=== PATIENT | male | born 1960 | race Caucasian/White ===

== ENCOUNTER 2020-03-20 10:19 | Emergency (ER) | payer BC, OTHER ==
[2020-03-20] MEDS ORDERED: LIDOCAINE 1% W/EPI 1:100,000 MDV 50 ML VIAL ONE (11:28)
--- NOTE | 2020-03-20 11:35 | RAD REPORT ---
EXAM DESCRIPTION: CT - Head Brain Wo Cont - 03/20/2020 11:22 am CLINICAL HISTORY: TRAUMAfall, head trauma COMPARISON: No comparisons TECHNIQUE: Axial 5 mm thick images of the head were obtained without IV contrast. All CT scans are performed using dose optimization technique as appropriate and may include automated exposure control or mA/KV adjustment according to patient size. FINDINGS: No intracranial hemorrhage, mass, edema or shift of mid-line structures. No acute infarcti on changes seen. No abnormal extra-axial fluid collections. Ventricles are normal. Mastoid air cells and visualized portions of the paranasal sinuses are clear. No acute bony findings. Laceration lateral right frontal region. No foreign body. IMPRESSION: Negative non-contrast CT head examination.
--- NOTE | 2020-03-20 12:24 | EDPHYS ---
Physician Documentation [facility] Name: Tony Alicia Age: 59 yrs Sex: Male : 1960 Arrival Date: 03/20/2020 Time: 10:21 Bed 19 Private MD: ED Physician Ap Larid HPI: 03/20 12:21 This 59 yrs old Male presents to ER via Ambulatory with complaints of jr8 Laceration To Head. 12:21 The patient has a laceration related to: falling occurred at home. The laceration(s) jr8 is(are) located on the scalp. Onset: The symptoms/episode began/occurred acutely, last night. Associated signs and symptoms: The patient has no apparent associated signs or symptoms. The patient has not experienced similar symptoms in the past. The patient has not recently seen a physician. Patient stated that he was intoxicated last night. Fell and hit head. Does not remember all of event. Came in to ED after saw large laceration to side of head . Historical: - Allergies: 10:50 No Known Allergies; iw - Home Meds: 10:50 Lisinopril Oral once daily [Active]; Metoprolol Tartrate Oral [Active]; atorvastatin iw oral oral [Active]; - PMHx: 10:50 Hyperlipidemia; Hypertension; iw - PSHx: 10:50 right shoulder; iw - Immunization history:: Adult Immunizations not up to date, Last tetanus immunization: unknown. - Social history:: Smoking status: Patient reports the use of cigarette tobacco products, smokes one pack cigarettes per day. ROS: 12:21 Eyes: Negative for injury, pain, redness, and discharge, ENT: Negative for injury, jr8 pain, and discharge, Neck: Negative for injury, pain, and swelling, Cardiovascular: Negative for chest pain, palpitations, and edema, Respiratory: Negative for shortness of breath, cough, wheezing, and pleuritic chest pain, Abdomen/GI: Negative for abdominal pain, nausea, vomiting, diarrhea, and constipation, Back: Negative for injury and pain, MS/Extremity: Negative for injury and deformity, Neuro: Negative for headache, weakness, numbness, tingling, and seizure. 12:21 Skin: Positive for laceration(s), of the scalp. Exam: 12:21 Eyes: Pupils equal round and reactive to light, extra-ocular motions intact. Lids and jr8 lashes normal. Conjunctiva and sclera are non-icteric and not injected. Cornea within normal limits. Periorbital areas with no swelling, redness, or edema. ENT: Nares patent. No nasal discharge, no septal abnormalities noted. Tympanic membranes are normal and external auditory canals are clear. Oropharynx with no redness, swelling, or masses, exudates, or evidence of obstruction, uvula midline. Mucous membranes moist. Neck: Trachea midline, no thyromegaly or masses palpated, and no cervical lymphadenopathy. Supple, full range of motion without nuchal rigidity, or vertebral point tenderness. No Meningismus. Cardiovascular: Regular rate and rhythm with a normal S1 and S2. No gallops, murmurs, or rubs. Normal PMI, no JVD. No pulse deficits. Respiratory: Lungs have equal breath sounds bilaterally, clear to auscultation and percussion. No rales, rhonchi or wheezes noted. No increased work of breathing, no retractions or nasal flaring. Abdomen/GI: Soft, non-tender, with normal bowel sounds. No distension or tympany. No guarding or rebound. No evidence of tenderness throughout. Back: No spinal tenderness. No costovertebral tenderness. Full range of motion. MS/ Extremity: Pulses equal, no cyanosis. Neurovascular intact. Full, normal range of motion. Neuro: Awake and alert, GCS 15, oriented to person, place, time, and situation. Cranial nerves II-XII grossly intact. Motor strength 5/5 in all extremities. Sensory grossly intact. Cerebellar exam normal. Normal gait. 12:21 Head/face: Noted is a laceration(s), that is deep, that is linear, 7.5 cm(s), of the right parietal region . Vital Signs: 10:50 BP 210 / 89; Pulse 73; Resp 16; Temp 98.4; Pulse Ox 100% on R/A; iw 11:45 BP 167 / 84; Pulse 67; Resp 18; Pulse Ox 100% ; bp 12:50 BP 172 / 70; Pulse 67; Resp 17; Temp 98.5; Pulse Ox 100% ; bp Laceration: 12:21 Wound Repair of 7.5cm ( 3.0in ) subcutaneous laceration to scalp. Linear shaped.. jr8 Distal neuro/vascular/tendon intact. Anesthesia: Local anesthetic administered with 5 mls of 1% lidocaine w/ Epi. Wound prep: Extensive cleansing with betadine, Wound irrigation with saline, Wound explored extensively, Copious irrigation. Skin closed with 7 sophia Sophia using staple gun. Patient tolerated well. MDM: 11:06 Patient medically screened. jr8 12:21 Data reviewed: vital signs, nurses notes, radiologic studies, CT scan, and as a result, jr8 I will discharge patient. Data interpreted: Pulse oximetry: on room air is 100 %. Interpretation: normal. Counseling: I had a detailed discussion with the patient and/or guardian regarding: the historical points, exam findings, and any diagnostic results supporting the discharge/admit diagnosis, radiology results, the need for outpatient follow up, a family practitioner, to return to the emergency department if symptoms worsen or persist or if there are any questions or concerns that arise at home. 03/20 11:13 Order name: CT Head Brain wo Cont; Complete Time: 11:49 jr8 03/20 11:13 Order name: Dressing - Wound; Complete Time: 11:17 jr8 03/20 11:13 Order name: Gloves, Sterile; Complete Time: 11:17 jr8 Administered Medications: 11:17 Drug: Lidocaine-Epinephrine -1%: (1:100,000) 1 vials {Note: AT B/S.} Volume: 20 ml; bp Route: Infiltration; 12:35 Drug: Tetanus-Diphtheria Toxoid Adult 0.5 ml {Golf Ball Marker: [employer]. Exp: bp 08/15/2022. Lot #: [id number]. } Route: IM; Site: right deltoid; 12:43 Follow up: Response: No adverse reaction bp Disposition: 13:38 Co-signature as Attending Physician, Ap Laird MD. rn Disposition: 03/20/20 12:24 Discharged to Home. Impression: Laceration without foreign body of scalp. - Condition is Stable. - Discharge Instructions: Laceration Care, Adult. - Prescriptions for Keflex 500 mg Oral Capsule - take 1 capsule by ORAL route every 8 hours for 7 days; 21 capsule. - Medication Reconciliation Form, Thank You Letter, Antibiotic Education, Prescription Opioid Use form. - Follow up: Private Physician; When: 1 week; Reason: Wound Recheck, Recheck today's complaints, Continuance of care, Staple/Suture removal, Re-evaluation by your physician. - Problem is new. - Symptoms have improved. Signatures: Dispatcher [employer] EDSmita Retana RN RN Ap Barajas MD MD rn Roszak, Josh, PA PA jr8 Sunil Wyman, RN RN bp Corrections: (The following items were deleted from the chart) 12:54 12:24 03/20/2020 12:24 Discharged to Home. Impression: Laceration without foreign body bp of scalp. Condition is Stable. Forms are Medication Reconciliation Form, Thank You Letter, Antibiotic Education, Prescription Opioid Use. Follow up: Private Physician; When: 1 week; Reason: Wound Recheck, Recheck today's complaints, Continuance of care, Staple/Suture removal, Re-evaluation by your physician. Problem is new. Symptoms have improved. jr8
--- NOTE | 2020-03-20 12:24 | ER ---
Nurse's Notes [facility] Name: Tony Alicia Age: 59 yrs Sex: Male : 1960 Arrival Date: 03/20/2020 Time: 10:21 Bed 19 Private MD: Diagnosis: Laceration without foreign body of scalp Presentation: 03/20 10:43 Chief complaint: Patient states: fell last night walking up the porch, does not iw remember how he fell, was drinking, has large laceration to right side of head, has some right hip pain but no other injuries, incident occurred around 9 pm. Coronavirus screen: At this time, the client does not indicate any symptoms associated with coronavirus-19. Ebola Screen: Patient negative for fever greater than or equal to 101.5 degrees Fahrenheit, and additional compatible Ebola Virus Disease symptoms Patient denies exposure to infectious person. Patient denies travel to an Ebola-affected area in the 21 days before illness onset. No symptoms or risks identified at this time. Initial Sepsis Screen: Does the patient meet any 2 criteria? No. Patient's initial sepsis screen is negative. Does the patient have a suspected source of infection? No. Patient's initial sepsis screen is negative. Risk Assessment: Do you want to hurt yourself or someone else? Patient reports no desire to harm self or others. Onset of symptoms was March 19, 2020. 10:43 Method Of Arrival: Ambulatory iw 10:43 Acuity: DAVID 4 iw Triage Assessment: 10:50 General: Appears in no apparent distress. comfortable, Behavior is cooperative, bp appropriate for age, anxious. Pain: Complains of pain in scalp. EENT: No deficits noted. Neuro: No deficits noted. Cardiovascular: No deficits noted. Respiratory: No deficits noted. GI: No signs and/or symptoms were reported involving the gastrointestinal system. : No signs and/or symptoms were reported regarding the genitourinary system. Derm: No deficits noted. Musculoskeletal: No deficits noted. Injury Description: Laceration sustained to scalp is 7.6 to 20 cm long, not bleeding. Historical: - Allergies: 10:50 No Known Allergies; iw - Home Meds: 10:50 Lisinopril Oral once daily [Active]; Metoprolol Tartrate Oral [Active]; atorvastatin iw oral oral [Active]; - PMHx: 10:50 Hyperlipidemia; Hypertension; iw - PSHx: 10:50 right shoulder; iw - Immunization history:: Adult Immunizations not up to date, Last tetanus immunization: unknown. - Social history:: Smoking status: Patient reports the use of cigarette tobacco products, smokes one pack cigarettes per day. Screenin:19 Abuse screen: Denies threats or abuse. Denies injuries from another. Nutritional bp screening: No deficits noted. Tuberculosis screening: No symptoms or risk factors identified. Fall Risk None identified. Assessment: 10:50 General: SEE TRIAGE NOTE. bp 11:18 Reassessment: PT TO CT. bp 12:30 Pain: Complains of pain in scalp. :. : No signs and/or symptoms were reported bp regarding the genitourinary system. Injury Description: Laceration sustained to scalp is bleeding no active bleeding noted. 12:50 Reassessment: PT D/C HOME AMBULATORY, DX WITH LACERATION OF SCALP WITHOUT FOREIGN BODY. bp Vital Signs: 10:50 BP 210 / 89; Pulse 73; Resp 16; Temp 98.4; Pulse Ox 100% on R/A; iw 11:45 BP 167 / 84; Pulse 67; Resp 18; Pulse Ox 100% ; bp 12:50 BP 172 / 70; Pulse 67; Resp 17; Temp 98.5; Pulse Ox 100% ; bp ED Course: 10:21 Patient arrived in ED. ag5 10:37 Sunil Wyman, RN is Primary Nurse. bp 10:48 Triage completed. iw 10:50 Arm band placed on. iw 11:06 Geoff Black PA is PHCP. jr8 11:06 Ap Laird MD is Attending Physician. jr8 11:19 Patient has correct armband on for positive identification. Bed in low position. Call bp light in reach. Side rails up X2. Adult w/ patient. 11:21 CT Head Brain wo Cont In Process Unspecified. EDMS 12:51 Assist provider with laceration repair on scalp. Patient did not have IV access during bp this emergency room visit. Administered Medications: 11:17 Drug: Lidocaine-Epinephrine -1%: (1:100,000) 1 vials {Note: AT B/S.} Volume: 20 ml; bp Route: Infiltration; 12:35 Drug: Tetanus-Diphtheria Toxoid Adult 0.5 ml {[employer] Curator: [employer]. Exp: bp 08/15/2022. Lot #: [id number]. } Route: IM; Site: right deltoid; 12:43 Follow up: Response: No adverse reaction bp Outcome: 12:24 Discharge ordered by MD. moser 12:53 Discharged to home ambulatory. bp 12:53 Condition: stable 12:53 Discharge instructions given to patient, Instructed on discharge instructions, follow up and referral plans. medication usage, wound care, Demonstrated understanding of instructions, follow-up care, medications, wound care, Prescriptions given X 1. 12:54 Patient left the ED. bp Signatures: Dispatcher [employer] EDMS Smita Rolle, RN RN Geoff Christie PA PA jr8 Sunil Wyman, SARA RN Latonya Reece 5
[2020-03-20] MEDS ORDERED: TETANUS & DIPHTHERIA TOX,ADULT 0.5 ML VIAL ONE (12:43)
[2020-03-20 13:00] VITALS: O2SAT 100
[2020-03-20 13:03] VITALS: BP 172/70; TEMP 98.5
== END 2020-03-20 12:54 | disposition home or self-care (01) ==
LOC: ER 10:19
PROC: 0JQ00ZZ Repair Scalp Subcutaneous Tissue and Fascia, Open Approach (ICD-10-PCS; principal; 2020-03-20)
DX: S01.01XA Laceration without foreign body of scalp, initial encounter (principal); F17.210 Nicotine dependence, cigarettes, uncomplicated; W19.XXXA Unspecified fall, initial encounter; Y93.89 Activity, other specified; Y92.009 Unspecified place in unspecified non-institutional (private) residence as the place of occurrence of the external cause; Z23 Encounter for immunization; I10 Essential (primary) hypertension; E78.5 Hyperlipidemia, unspecified
CPT/HCPCS: 70450; 90471; 90714; 99284

== ENCOUNTER 2020-03-28 09:14 | Emergency (ER) | payer BC ==
--- NOTE | 2020-03-28 09:34 | ER ---
Nurse's Notes [facility] Name: Tony Alicia Age: 59 yrs Sex: Male : 1960 Arrival Date: 03/28/2020 Time: 09:15 Bed Waiting Private MD: Diagnosis: Encounter for removal of sutures-asad Presentation: 03/28 09:30 Chief complaint: Patient states: I need my asad taken out. Coronavirus screen: ss Client denies travel out of the [place] in the last 14 days. At this time, the client does not indicate any symptoms associated with coronavirus-19. Ebola Screen: Patient negative for fever greater than or equal to 101.5 degrees Fahrenheit, and additional compatible Ebola Virus Disease symptoms Patient denies exposure to infectious person. Patient denies travel to an Ebola-affected area in the 21 days before illness onset. No symptoms or risks identified at this time. 09:30 Method Of Arrival: Ambulatory ss 09:30 Initial Sepsis Screen: Does the patient meet any 2 criteria? No. Patient's initial ss sepsis screen is negative. Does the patient have a suspected source of infection? No. Patient's initial sepsis screen is negative. Risk Assessment: Do you want to hurt yourself or someone else? Patient reports no desire to harm self or others. Onset of symptoms was March 2020. 09:30 Acuity: DAVID 5 Triage Assessment: 09:31 General: Appears in no apparent distress. comfortable, Behavior is calm, cooperative. ss Pain: Denies pain. Historical: - Allergies: 09:32 No Known Allergies; ss - PMHx: 09:32 Hyperlipidemia; Hypertension; ss - PSHx: 09:32 right shoulder; ss - Immunization history:: Adult Immunizations up to date. - Social history:: Smoking status: Patient denies any tobacco usage or history of. Screenin:32 Abuse screen: Denies threats or abuse. Denies injuries from another. Nutritional ss screening: No deficits noted. Tuberculosis screening: Never had TB. Fall Risk None identified. Assessment: 09:32 General: Appears in no apparent distress. comfortable, Behavior is calm, cooperative, ss encounter for suture removal. . Pain: Denies pain. Neuro: Level of Consciousness is awake, alert, obeys commands, Oriented to person, place, time, situation. Respiratory: Respiratory effort is even, unlabored, Respiratory pattern is regular, symmetrical. Derm: Skin is intact, is healthy with good turgor, Skin is pink, warm \T\ dry. normal. Vital Signs: 09:30 BP 189 / 79; Pulse 60; Resp 18; Temp 98.6; Pulse Ox 99% ; Weight 79.38 kg; Pain 0/10; ss ED Course: 09:15 Patient arrived in ED. as 09:19 [facility]C [facility] kb 09:19 Breezy Dozier MD is Attending Physician. kb 09:31 Arm band placed on right wrist. ss 09:32 Patient has correct armband on for positive identification. ss 09:32 No provider procedures requiring assistance completed. Patient did not have IV access ss during this emergency room visit. Removal of Patient tolerated well. 09:34 Triage completed. ss Administered Medications: No medications were administered Outcome: 09:32 Discharged to home ambulatory. ss 09:32 Condition: good 09:32 Discharge instructions given to patient, Instructed on discharge instructions, follow up and referral plans. Demonstrated understanding of instructions, follow-up care. 09:34 Discharge ordered by . kb 09:35 Patient left the ED. ss Signatures: Kate Andino FNP-C FNP-Ckb Martinez, Amelia as Smirch, Shelby, RN RN ss
--- NOTE | 2020-03-28 09:34 | EDPHYS ---
Physician Documentation [facility] Name: Tony Alicia Age: 59 yrs Sex: Male : 1960 Arrival Date: 03/28/2020 Time: 09:15 Bed Waiting Private MD: ED Physician Breezy Dozier HPI: 03/28 09:33 This 59 yrs old Male presents to ER via Ambulatory with complaints of Staple kb Removal. 09:33 The patient has asad on the right frontal area. Previous treatment: The patient was kb initially treated 8 day(s) ago, the care was rendered at [facility], Treatment type: The patient's original treatment included asad. Sutures/asad progress: The patient has no c/o's. The wound is well-healing with no redness, swelling, discharge, or dehiscence reported. The patient has not experienced similar symptoms in the past. The patient has been recently seen at the [facility] Emergency Department. Historical: - Allergies: 09:32 No Known Allergies; ss - PMHx: 09:32 Hyperlipidemia; Hypertension; ss - PSHx: 09:32 right shoulder; ss - Immunization history:: Adult Immunizations up to date. - Social history:: Smoking status: Patient denies any tobacco usage or history of. ROS: 09:32 Constitutional: Negative for fever, chills, and weight loss, Cardiovascular: Negative kb for chest pain, palpitations, and edema, Respiratory: Negative for shortness of breath, cough, wheezing, and pleuritic chest pain, Abdomen/GI: Negative for abdominal pain, nausea, vomiting, diarrhea, and constipation, MS/Extremity: Negative for injury and deformity, Neuro: Negative for headache, weakness, numbness, tingling, and seizure. 09:32 Skin: Positive for of the right frontal area, asad in place. Exam: 09:32 Constitutional: This is a well developed, well nourished patient who is awake, alert, kb and in no acute distress. Head/Face: Normocephalic, atraumatic. Chest/axilla: Normal chest wall appearance and motion. Nontender with no deformity. No lesions are appreciated. Cardiovascular: Regular rate and rhythm with a normal S1 and S2. No gallops, murmurs, or rubs. Normal PMI, no JVD. No pulse deficits. Respiratory: Lungs have equal breath sounds bilaterally, clear to auscultation and percussion. No rales, rhonchi or wheezes noted. No increased work of breathing, no retractions or nasal flaring. Abdomen/GI: Soft, non-tender, with normal bowel sounds. No distension or tympany. No guarding or rebound. No evidence of tenderness throughout. MS/ Extremity: Pulses equal, no cyanosis. Neurovascular intact. Full, normal range of motion. Neuro: Awake and alert, GCS 15, oriented to person, place, time, and situation. Cranial nerves II-XII grossly intact. Motor strength 5/5 in all extremities. Sensory grossly intact. Cerebellar exam normal. Normal gait. 09:32 Skin: Wound recheck: Staple laceration closure: the wound is healing well, the edges are well approximated, no evidence of dehiscence, no drainage, no erythema, no swelling. Vital Signs: 09:30 BP 189 / 79; Pulse 60; Resp 18; Temp 98.6; Pulse Ox 99% ; Weight 79.38 kg; Pain 0/10; ss Procedures: 09:33 Suture/Staple removal: Removed 7 asad, from right frontal area, site appears well kb healed, Patient tolerated well. MDM: 09:24 Patient medically screened. kb 09:33 Data reviewed: vital signs, nurses notes. Data interpreted: Pulse oximetry: on room air kb is 99 %. Interpretation: normal. Counseling: I had a detailed discussion with the patient and/or guardian regarding: the historical points, exam findings, and any diagnostic results supporting the discharge/admit diagnosis, the need for outpatient follow up, a family practitioner, to return to the emergency department if symptoms worsen or persist or if there are any questions or concerns that arise at home. Administered Medications: No medications were administered Disposition: 10:21 Co-signature as Attending Physician, Breezy Dozier MD I agree with the assessment and kdr plan of care. Disposition: 03/28/20 09:34 Discharged to Home. Impression: Encounter for removal of sutures - asad. - Condition is Stable. - Discharge Instructions: Suture Removal, Care After. - Medication Reconciliation Form, Thank You Letter, Antibiotic Education, Prescription Opioid Use form. - Follow up: Emergency Department; When: As needed; Reason: Worsening of condition. Follow up: Private Physician; When: 2 - 3 days; Reason: Recheck today's complaints, Continuance of care, Re-evaluation by your physician. Signatures: Kate Andino FNP-C FNP-Breezy Call MD MD [facility] Aisha Ferrer RN RN ss Corrections: (The following items were deleted from the chart) 09:35 09:34 03/28/2020 09:34 Discharged to Home. Impression: Encounter for removal of sutures ss - asad. Condition is Stable. Forms are Medication Reconciliation Form, Thank You Letter, Antibiotic Education, Prescription Opioid Use. Follow up: Emergency Department; When: As needed; Reason: Worsening of condition. Follow up: Private Physician; When: 2 - 3 days; Reason: Recheck today's complaints, Continuance of care, Re-evaluation by your physician. kb
[2020-03-28 10:06] VITALS: BP 189/79; TEMP 98.6; O2SAT 99
== END 2020-03-28 09:35 | disposition home or self-care (01) ==
LOC: ER 09:14
DX: Z48.02 Encounter for removal of sutures (principal)
CPT/HCPCS: 99281

== ENCOUNTER 2023-12-01 09:32 | Emergency (ER) | payer OTHER ==
[2023-12-01] MEDS ORDERED: AZITHROMYCIN 250 MG TAB ONE (10:10)
[2023-12-01 10:35] LABS: SARS-CoV-2 Antigen CONTROL BLUE LINE VIS/BG OK; SARS-CoV-2 Antigen Rapid Res Negative (Negative)
[2023-12-01] MEDS ORDERED: CEFTRIAXONE 1000 MG/VIAL ONE (10:36)
[2023-12-01] MEDS ORDERED: IPRATROPIUM BROM 0.5MG/2.5ML ONE (10:36)
[2023-12-01] MEDS ORDERED: METHYLPREDNISOLONE 125 MG INJ ONE (10:37)
[2023-12-01] MEDS ORDERED: predniSONE 20 MG TAB ONE (10:37)
[2023-12-01] MEDS ORDERED: LEVALBUTEROL 1.25 MG/3 ML NEB ONE ×2 (10:37→12:44)
[2023-12-01] MEDS ORDERED: NA CHLORIDE 0.9% 100 ML ONE (10:38)
[2023-12-01] MEDS ORDERED: Magnesium Sulfate 2gm IVPB 2 G/50 ML BAG IV ONE (10:38)
--- NOTE | 2023-12-01 11:32 | RAD REPORT ---
EXAM DESCRIPTION: RAD - Chest Pa And Lat (2 Views) - 12/01/2023 10:50 am CLINICAL HISTORY: COPD;Cough COMPARISON: CHEST PA AND LAT 2 VIEW dated 02/07/2007 TECHNIQUE: PA and lateral views of the chest were obtained. FINDINGS: Left perihilar streaky opacification, new/ progressive since the prior exam. . Heart size is normal and central vasculature is within normal limits. No pleural effusion or pneumothorax seen. No acute bony finding noted. IMPRESSION: New or progressive left perihilar streaky opacification, could reflect reactive airway c hanges or early pneumonia.
[2023-12-01 11:41] LABS: Absolute Lymphocytes (CBC) 0.9 K/uL (0.7-4.9); Absolute Neutrophil 13.6 K/uL (1.8-8.0); Basophils % 0.3 % (0-1.3); Eosinophils % 0.2 % (0-4.4); Hematocrit 45.3 % (39.6-49.0); Hemoglobin 14.8 g/dL (13.6-17.9); Lymphocytes % 5.6 % (15.3-44.8); MCH 31.4 pg (27.0-35.0); MCHC 32.8 g/dL (32.0-36.0); MCV 95.9 fL (80-100); Monocytes % 12.2 % (3.3-12.3); Neutrophils % 81.7 % (41.7-73.7); Platelets 268 thou/uL (152-406); RBC Red Blood Cell Count 4.72 M/uL (4.33-5.43); Red Cell Distribution Width 13.5 % (12.1-15.2)
[2023-12-01 11:57] LABS: Albumin 2.9 g/dL (3.4-5.0); Albumin/Globulin Ratio 0.7 (1.1-1.8); Anion Gap 9.4 mEq/L (5.0-15.0); Bilirubin Total 0.5 mg/dL (0.2-1.0); Globulin 4.3 g/dL (2.3-3.5); Potassium 4.4 mEq/L (3.5-5.1); Protein, Total 7.2 g/dL (6.4-8.2)
--- NOTE | 2023-12-01 12:03 | ER ---
Nurse's Notes [facility] Name: Tony Alicia Age: 63 yrs Sex: Male : 1960 Arrival Date: 12/01/2023 Time: 09:32 Bed 9 Private MD: Diagnosis: Tobacco abuse counseling;Tobacco use;COPD/ Chronic obstructive pulmonary disease with (acute) exacerbation;Pneumonia due to other specified bacteria;Elevated white blood cell count Presentation: 11/30 09:50 Chief complaint: Patient states: Dyspnea on exertion, orthopnea, "cannot really take a nj1 deep breath", achy, chills since Tuesday. Had left over penicillin that started taking at home with no relief. 09:50 Coronavirus screen: Vaccine status: Patient reports receiving the 2nd dose of the covid nj1 vaccine. Ebola Screen: Patient denies travel to an Ebola-affected area in the 21 days before illness onset. Initial Sepsis Screen: Does the patient meet any 2 criteria? No. Patient's initial sepsis screen is negative. Does the patient have a suspected source of infection? No. Patient's initial sepsis screen is negative. Risk Assessment: Do you want to hurt yourself or someone else? Patient reports no desire to harm self or others. Onset of symptoms was November 26, 2023. 09:50 Method Of Arrival: Ambulatory [facility] 09:50 Acuity: DAVID 3 nj1 Triage Assessment: 10:00 General: Appears in no apparent distress. Behavior is calm, cooperative, appropriate bp for age. Pain: Denies pain. EENT: Reports nasal congestion. Neuro: No deficits noted. Cardiovascular: No deficits noted. Respiratory: Reports cough that is. GI: No signs and/or symptoms were reported involving the gastrointestinal system. : No signs and/or symptoms were reported regarding the genitourinary system. Historical: - Allergies: 10:00 No Known Allergies; nj1 - Home Meds: 10:00 atorvastatin 10 mg oral tablet 1 tab daily [Active]; lisinopril 40 mg oral tablet 1 tab nj1 daily [Active]; metoprolol tartrate 25 mg oral tablet 1 tabs daily [Active]; - PMHx: 10:00 Hyperlipidemia; Hypertension; nj1 - Immunization history:: Client reports receiving the 2nd dose of the Covid vaccine. - Infectious Disease History:: Denies. - Social history:: Smoking status: Patient reports the use of cigarette tobacco products, smokes one pack cigarettes per day. Screenin:00 [facility] ED Fall Risk Assessment (Adult) History of falling in the last 3 months, bp including since admission No falls in past 3 months (0 pts) Confusion or Disorientation No (0 pts) Intoxicated or Sedated No (0 pts) Impaired Gait No (0 pts) Mobility Assist Device Used No (0 pt) Altered Elimination No (0 pt) Score/Fall Risk Level 0 - 2 = Low Risk. Abuse screen: Denies threats or abuse. Denies injuries from another. Nutritional screening: No deficits noted. Tuberculosis screening: No symptoms or risk factors identified. Assessment: 10:00 General: Appears in no apparent distress. Behavior is calm, cooperative, appropriate bp for age. Pain: Denies pain. 12:51 General: Pt pending d/c for med administration. cm10 Vital Signs: 09:50 BP 174 / 77; Pulse 62; Resp 20; Temp 98.6(O); Pulse Ox 99% on R/A; Weight 79.38 kg; nj1 Height 6 ft. 2 in. ; 11:51 BP 163 / 71; Pulse 67; Resp 16; Pulse Ox 100% ; bp 09:50 Body Mass Index 22.47 (79.38 kg, 187.96 cm) nj1 ED Course: 09:35 Patient arrived in ED. rg4 09:42 Mina Carranza MD is Attending Physician. marlys 10:00 Triage completed. nj1 10:00 Patient has correct armband on for positive identification. bp 10:01 Arm band placed on. nj1 10:02 Sunil Wyman, SARA is Primary Nurse. bp 10:13 SARS RAPID Sent. jr12 10:13 Flu Sent. jr12 10:52 Chest Pa And Lat (2 Views) XRAY In Process Unspecified. EDMS 11:00 Inserted saline lock: 22 gauge in right forearm, using aseptic technique. Blood bp collected. 12:03 Marcelino Blake MD is Referral Physician. marlys 13:14 No provider procedures requiring assistance completed. IV discontinued, intact, cm10 bleeding controlled, No redness/swelling at site. Pressure dressing applied. Administered Medications: 11:26 Drug: AZITHromycin PO 500 mg PO once Route: PO; bp 11:26 Drug: Levalbuterol Inhalation 3.75 mg Inhalation once Route: Inhalation; bp 11:26 Drug: Ipratropium Inhalation Aerosol 0.5 mg Inhalation once Route: Inhalation; bp 11:26 Drug: Rocephin IV 1 grams IV at per protocol once; Given slow IV push per pharmacy bp instructions Route: IV; Rate: per protocol; Site: right forearm; 13:14 Follow up: Response: No adverse reaction; IV Status: Completed infusion cm10 11:26 Drug: MethylPrednisoLONE IVP 125 mg IVP once Route: IVP; Site: right forearm; bp 13:14 Follow up: Response: No adverse reaction cm10 11:26 Drug: predniSONE PO 60 mg PO once Route: PO; bp 11:26 Drug: Magnesium Sulfate IVPB 2 grams IVPB once over 1 hrs Route: IVPB; Infused Over: 1 bp hrs; Site: right forearm; 13:14 Follow up: IV Status: Completed infusion cm10 12:51 Drug: Amoxicillin-Clavulanate PO 875 mg PO once Route: PO; cm10 13:14 Follow up: Response: No adverse reaction cm10 12:51 Drug: Levalbuterol Inhalation 1.25 mg Inhalation once Route: Inhalation; cm10 Medication: 10:00 VIS not applicable for this client. bp Outcome: 12:03 Discharge ordered by . marlys 13:14 Discharged to home ambulatory, cm10 13:14 Condition: good 13:14 Discharge instructions given to patient, Instructed on discharge instructions, follow up and referral plans. medication usage, Demonstrated understanding of instructions, follow-up care, medications, Prescriptions given X 6 13:15 Patient left the ED. cm10 Signatures: Dispatcher [employer] EDWY Mina Carranza MD MD cha Garcia, Rubi rg4 Sunil Wyman, RN RN bp Bertha Andrade RN RN nj1 Jeanette West RN RN cm10 Matilde Santos jr12
--- NOTE | 2023-12-01 12:03 | EDPHYS ---
Physician Documentation [facility] Name: Tony Alicia Age: 63 yrs Sex: Male : 1960 Arrival Date: 12/01/2023 Time: 09:32 Bed 9 Private MD: Mina Albarran HPI: 11/30 10:14 This 63 yrs old Male presents to ER via Ambulatory with complaints of Flu marlys Symptoms. Historical: - Allergies: 10:00 No Known Allergies; nj1 - Home Meds: 10:00 atorvastatin 10 mg oral tablet 1 tab daily [Active]; lisinopril 40 mg oral tablet 1 tab nj1 daily [Active]; metoprolol tartrate 25 mg oral tablet 1 tabs daily [Active]; - PMHx: 10:00 Hyperlipidemia; Hypertension; nj1 - Immunization history:: Client reports receiving the 2nd dose of the Covid vaccine. - Infectious Disease History:: Denies. - Social history:: Smoking status: Patient reports the use of cigarette tobacco products, smokes one pack cigarettes per day. ROS: 10:14 Constitutional: Negative for fever, chills, and weight loss, Eyes: Negative for injury, marlys pain, redness, and discharge, ENT: Negative for injury, pain, and discharge, Neck: Negative for injury, pain, and swelling, Cardiovascular: Negative for chest pain, palpitations, and edema, Abdomen/GI: Negative for abdominal pain, nausea, vomiting, diarrhea, and constipation, Back: Negative for injury and pain, : Negative for injury, bleeding, discharge, and swelling, MS/Extremity: Negative for injury and deformity, Skin: Negative for injury, rash, and discoloration, Neuro: Negative for headache, weakness, numbness, tingling, and seizure, Psych: Negative for depression, anxiety, suicide ideation, homicidal ideation, and hallucinations, Allergy/Immunology: Negative for hives, rash, and allergies, Endocrine: Negative for neck swelling, polydipsia, polyuria, polyphagia, and marked weight changes, Hematologic/Lymphatic: Negative for swollen nodes, abnormal bleeding, and unusual bruising, 10:14 Respiratory: Positive for cough, orthopnea, shortness of breath, wheezing, inspiratory, expiratory, Exam: 10:14 Constitutional: This is a well developed, well nourished patient who is awake, alert, marlys and in no acute distress. Head/Face: Normocephalic, atraumatic. Eyes: Pupils equal round and reactive to light, extra-ocular motions intact. Lids and lashes normal. Conjunctiva and sclera are non-icteric and not injected. Cornea within normal limits. Periorbital areas with no swelling, redness, or edema. ENT: Nares patent. No nasal discharge, no septal abnormalities noted. Tympanic membranes are normal and external auditory canals are clear. Oropharynx with no redness, swelling, or masses, exudates, or evidence of obstruction, uvula midline. Mucous membranes moist. Neck: Trachea midline, no thyromegaly or masses palpated, and no cervical lymphadenopathy. Supple, full range of motion without nuchal rigidity, or vertebral point tenderness. No Meningismus. Chest/axilla: Normal chest wall appearance and motion. Nontender with no deformity. No lesions are appreciated. Cardiovascular: Regular rate and rhythm with a normal S1 and S2. No gallops, murmurs, or rubs. Normal PMI, no JVD. No pulse deficits. Abdomen/GI: Soft, non-tender, with normal bowel sounds. No distension or tympany. No guarding or rebound. No evidence of tenderness throughout. Back: No spinal tenderness. No costovertebral tenderness. Full range of motion. Male : Normal genitalia with no discharge or lesions. Skin: Warm, dry with normal turgor. Normal color with no rashes, no lesions, and no evidence of cellulitis. MS/ Extremity: Pulses equal, no cyanosis. Neurovascular intact. Full, normal range of motion. Neuro: Awake and alert, GCS 15, oriented to person, place, time, and situation. Cranial nerves II-XII grossly intact. Motor strength 5/5 in all extremities. Sensory grossly intact. Cerebellar exam normal. Normal gait. Psych: Awake, alert, with orientation to person, place and time. Behavior, mood, and affect are within normal limits. 10:14 Respiratory: mild respiratory distress is noted, Respirations: normal, no acute changes, is not noted, Breath sounds: bronchial sounds, decreased breath sounds, rhonchi, + upper airway congestion. wheezing: inspiratory expiratory Respiratory rate: 20 10:14 Musculoskeletal/extremity: ROM: no acute changes, intact in all extremities, Circulation is intact in all extremities. Pulses: are normal with no appreciated deficits, Sensation intact. DVT Exam: No signs of deep vein thrombosis. no pain, no swelling, no tenderness, negative Homans' sign noted on exam, no appreciated bluish discoloration, no erythema, no increased warmth, Vital Signs: 09:50 BP 174 / 77; Pulse 62; Resp 20; Temp 98.6(O); Pulse Ox 99% on R/A; Weight 79.38 kg; nj1 Height 6 ft. 2 in. ; 11:51 BP 163 / 71; Pulse 67; Resp 16; Pulse Ox 100% ; bp 09:50 Body Mass Index 22.47 (79.38 kg, 187.96 cm) [facility] MDM: 09:42 Patient medically screened. [facility] 10:17 Differential diagnosis: Anemia asthma, Bronchitis CHF exacerbation, Chronic Obstructive marlys Pulmonary Disease obstructed airway, tracheal injury, bronchitis, flu, URI, pneumonia, Pneumothorax pulmonary edema, reactive airway disease, Sepsis. Antibiotic administration: The patient is discharged and will get outpatient antibiotics, Amoxicillin, Zithromax. Differential Diagnosis: Obstructed Airway Bronchitis Influenza Upper Respiratory Infection Sinusitis Pharyngitis Asthma Exacerbation Viral Syndrome Pneumonia. Immunization status: Influenza vaccine: within last 5 years. Data reviewed: vital signs, nurses notes, lab test result(s), radiologic studies, plain films. Consideration of Admission/Observation Escalation of care including admission/observation considered. I considered the following discharge prescriptions or medication management in the emergency department Medications were administered in the Emergency Department. See MAR. Independent interpretation of the following test(s) in the Emergency Department X-Ray: My interpretation is cxr neg. Care significantly affected by the following chronic conditions: Hypertension, Chronic Obstructive Pulmonary Disease, tobacco abuse. Counseling: I had a detailed discussion with the patient and/or guardian regarding the historical points, exam findings, and any diagnostic results supporting the discharge/admit diagnosis, lab results, radiology results, the need for outpatient follow up, for definitive care, a family practitioner, a tree farmer. 11/30 09:43 Order name: Flu; Complete Time: 11:21 [facility] 11/30 09:43 Order name: SARS RAPID; Complete Time: 11:21 [facility] 11/30 10:11 Order name: CBC with Diff; Complete Time: 11:45 [facility] 11/30 10:11 Order name: Comprehensive Metabolic Panel; Complete Time: 12:03 [facility] 06/20 10:11 Order name: Blood Culture Adult (2) marlys 11/30 10:11 Order name: Chest Pa And Lat (2 Views) XRAY; Complete Time: 11:45 marlys Administered Medications: 11:26 Drug: AZITHromycin PO 500 mg PO once Route: PO; bp 11:26 Drug: Levalbuterol Inhalation 3.75 mg Inhalation once Route: Inhalation; bp 11:26 Drug: Ipratropium Inhalation Aerosol 0.5 mg Inhalation once Route: Inhalation; bp 11:26 Drug: Rocephin IV 1 grams IV at per protocol once; Given slow IV push per pharmacy bp instructions Route: IV; Rate: per protocol; Site: right forearm; 13:14 Follow up: Response: No adverse reaction; IV Status: Completed infusion cm10 11:26 Drug: MethylPrednisoLONE IVP 125 mg IVP once Route: IVP; Site: right forearm; bp 13:14 Follow up: Response: No adverse reaction cm10 11:26 Drug: predniSONE PO 60 mg PO once Route: PO; bp 11:26 Drug: Magnesium Sulfate IVPB 2 grams IVPB once over 1 hrs Route: IVPB; Infused Over: 1 bp hrs; Site: right forearm; 13:14 Follow up: IV Status: Completed infusion cm10 12:51 Drug: Amoxicillin-Clavulanate PO 875 mg PO once Route: PO; cm10 13:14 Follow up: Response: No adverse reaction cm10 12:51 Drug: Levalbuterol Inhalation 1.25 mg Inhalation once Route: Inhalation; cm10 Disposition Summary: 12/01/23 12:03 Discharge Ordered Notes: Location: Home marlys Problem: new marlys Symptoms: have improved marlys Condition: Stable marlys Diagnosis - Tobacco abuse counseling marlys - Tobacco use marlys - COPD/ Chronic obstructive pulmonary disease with (acute) exacerbation marlys - Pneumonia due to other specified bacteria marlys - Elevated white blood cell count marlys Followup: marlys - With: Private Physician - When: 2 - 3 days - Reason: Recheck today's complaints, Continuance of care, Re-evaluation by your physician Followup: marlys - With: Marcelino Blake MD - When: 2 - 3 days - Reason: Recheck today's complaints, Re-evaluation by your physician Discharge Instructions: - Discharge Summary Sheet marlys - Chronic Obstructive Pulmonary Disease marlys - Community-Acquired Pneumonia, Adult marlys - Steps to Quit Smoking marlys - Health Risks of Smoking marlys - Chronic Obstructive Pulmonary Disease Exacerbation marlys - Chronic Obstructive Pulmonary Disease, Hexa-hs-Txes marlys - Community-Acquired Pneumonia, Adult, Llwr-we-Riue marlys - Steps to Quit Smoking, [id number] marlys - Cough, Adult, Hkmw-sk-Nick [facility] - How to Use a Nebulizer, Adult marlys - Cough, Adult [facility] Forms: - Medication Reconciliation Form marlys - Antibiotic Education marlys - Prescription Opioid Use marlys - Patient Portal Instructions [facility] - Leadership Thank You Letter [facility] Prescriptions: - albuterol sulfate 90 mcg/actuation Inhalation HFA Aerosol Inhaler - inhale 2 inhalation INHALATION route every 4-6 hours; 1 unit; Refills: 0, [facility] Product Selection Permitted - Augmentin 875-125 mg Oral tablet - take 1 tablet ORAL route every 12 hours for 10 days; 20 tablet; Refills: 0, [facility] Product Selection Permitted - Albuterol Sulfate 2.5 mg /3 mL (0.083 %) Inhalation Solution for Nebulization - inhale 1 unit NEBULIZATION route every 8 hours As needed; 25 unit; Refills: 0, [facility] Product Selection Permitted - Prednisone 20 mg Oral Tablet - take 2 tablets ORAL route once daily for 5 days; 10 tablet; Refills: 0, Product marlys Selection Permitted - Zithromax 500 mg Oral tablet - take 1 tablet ORAL route once daily for 5 days; 5 tablet; Refills: 0, Product marlys Selection Permitted Signatures: Dispatcher [employer] EDMS Mina Carranza MD MD cha Peltier, Brian, RN RN bp Bertha Andrade RN RN nj1 Jeanette West RN RN cm10 Corrections: (The following items were deleted from the chart) 10:11 10:11 CBC+H.LAB.BRZ ordered. EDMS EDMS 10:11 10:11 COMPREHENSIVE METABOLIC PANEL+C.LAB.BRZ ordered. EDMS EDMS 10:11 10:11 BLOOD CULTURE*+BA.LAB.BRZ ordered. EDMS EDMS
[2023-12-01] MEDS ORDERED: AMOX/K CLAV 875 MG TAB ONE (12:44)
[2023-12-01 13:38] VITALS: TEMP 98.6
[2023-12-01 13:55] VITALS: BP 163/71; O2SAT 100
== END 2023-12-01 13:15 | disposition home or self-care (01) ==
LOC: ER 09:32
DX: J44.1 Chronic obstructive pulmonary disease with (acute) exacerbation (principal); J15.8 Pneumonia due to other specified bacteria; D72.829 Elevated white blood cell count, unspecified; Z72.0 Tobacco use; Z71.6 Tobacco abuse counseling; Z11.52 Encounter for screening for COVID-19
CPT/HCPCS: 96365; 96368; 87040 ×2; 85025; 36415; 80053; 87804 ×2; 71046; 96375; 99285; 96366; 87811; J7512; J3475; J7614 ×2; J7644; J2919; J0696

== ENCOUNTER 2024-02-06 08:12 | Day surgery (SDC) | payer OTHER ==
[2024-02-06 08:27] LABS: Absolute Basophils 0.1 K/uL (0-0.5); Absolute Eosinophils 0.2 K/uL (0-0.5); Absolute Lymphocytes (CBC) 1.5 K/uL (0.7-4.9); Absolute Monocytes 0.8 K/uL (0.1-1.3); Absolute Neutrophil 4.7 K/uL (1.8-8.0); Eosinophils % 2.5 % (0-4.4); Hematocrit 42.6 % (39.6-49.0); Hemoglobin 13.9 g/dL (13.6-17.9); Lymphocytes % 20.1 % (15.3-44.8); MCH 31.5 pg (27.0-35.0); MCHC 32.7 g/dL (32.0-36.0); MCV 96.3 fL (80-100); MPV 8.2 fL (7.6-11.3); Monocytes % 10.7 % (3.3-12.3); Neutrophils % 65.7 % (41.7-73.7); Platelets 226 thou/uL (152-406); RBC Red Blood Cell Count 4.43 M/uL (4.33-5.43); Red Cell Distribution Width 14.4 % (12.1-15.2)
[2024-02-06] MEDS: Ringers Lactate 1,000 ML IV ONE (08:40)
[2024-02-06] MEDS ORDERED: MIDAZOLAM HCL 2 MG/2 ML INJ ONE ×2 (08:43→08:46)
[2024-02-06] MEDS ORDERED: KETOROLAC 30 MG/ML INJ ONE (08:43)
[2024-02-06] MEDS ORDERED: FENTANYL CITR 100 MCG/2 ML ONE ×3 (08:43→10:11)
[2024-02-06] MEDS ORDERED: propofoL 200 MG/20 ML VIAL IV ONE (08:43)
[2024-02-06] MEDS ORDERED: LIDOCAINE 1% MPF 5 ML VIAL ONE (08:43)
[2024-02-06] MEDS ORDERED: dexAMETHasone 10 MG/ML VIAL ONE (08:47)
[2024-02-06] MEDS ORDERED: KETAMINE HCL IN 0.9 % NACL 50 MG/5 ML SYRINGE IV ONE (09:29)
[2024-02-06] MEDS: CEFAZOLIN SODIUM 1 GM/VIAL ONE (09:30)
--- NOTE | 2024-02-06 09:58 | EKG ---
Test Date: 2024-02-06 Test Time: 07:59:30 Hand Stemmer: HERMANN MEASUREMENT RESULTS: Intervals: Rate: 69 MT: 144 QRSD: 96 QT: 388 QTc: 415 [place]: P: 44 MT: 144 QRS: 57 T: 61 INTERPRETIVE STATEMENTS: Normal sinus rhythm Moderate voltage criteria for LVH, may be normal variant Borderline ECG Compared to ECG 02/08/2007 14:09:48 ST (T wave) deviation no longer present Electronically Signed On 02-06-24 09:57:59 CDT by Alan Foy
--- NOTE | 2024-02-06 10:51 | P.BOP ---
Preoperative diagnosis: Large left tender inguinal hernia Postoperative diagnosis: same Primary procedure: Open repair of Large left tender inguinal hernia with mesh Estimated blood loss: <10cc Specimen: none Findings: as above, sac imbricated Anesthesia: General Complications: None Transferred to: Recovery Room Condition: Good
[2024-02-06] MEDS ORDERED: Ringers Lactate 1,000 ML IV ONE (11:01)
[2024-02-06] MEDS: CODEINE 30MG/APAP 300MG TAB ONE (11:04)
--- NOTE | 2024-02-06 11:44 | RAD REPORT ---
EXAM DESCRIPTION: RAD - Chest Pa And Lat (2 Views) - 02/06/2024 9:11 am CLINICAL HISTORY: Hypertension. Pre op pending hernia repair COMPARISON: Chest Pa And Lat (2 Views) dated 12/01/2023 TECHNIQUE: PA and lateral views of the chest were obtained. FINDINGS: The lungs are clear. Heart size is normal and central vasculature is within normal limits. No pleural effusion or pneumothorax seen. No acute bony finding noted. IMPRESSION: No acute cardiopulmonary process.
[2024-02-06 16:32] VITALS: BP 165/74; TEMP 97.9; O2SAT 100
--- NOTE | 2024-02-07 00:33 | OP ---
Date of Procedure: 02/06/2024 Surgeon: Brandon West MD Preoperative Diagnosis: Large left tender inguinal hernia. Postoperative Diagnosis: Large left tender inguinal hernia. Procedure: Open repair of large left tender inguinal hernia with mesh. Estimated Blood Loss: Less than 10 cc. Specimen: None. Findings: As above. The patient has direct and indirect hernias present at the same time. We have 1 large defect in the floor of the canal that was reconstructed and also mesh placed in that area. S ee the rest of the procedure. Anesthesia: General plus local. Complications: None. Indications: This is a case of a 63-year-old patient who comes to us with a large left inguinal nikunj ia. We discussed with him the options of laparoscopic versus open and also recurrence rate. He liana cted open technique with mesh. The benefits, alternatives, and risks of open repair of an inguinal h ernia with mesh was fully explained, which include, but not limited to infection, bleeding, damage to adjacent structures, anesthesia complication, recurrence, chronic pain, chronic numbness, UT, and ev en . He also understands this may not relieve any symptoms. He might need more than one surgic al intervention. We also discussed with him pros and cons of mesh placement. All the questions were answered to his satisfaction. He signed a consent. The area of concern was marked by me and the norberto medina in the holding room. Description Of Procedure: The patient was brought to the operating room, placed in supine position. Anesthesia was induced without complication. Abdomen and inguinal area were prepped and draped in a sterile fashion. A time-out was called. After that, local anesthesia was applied followed by sharp incision of the skin on the left inguinal region. We went through Katy fascia until we found the external oblique aponeurosis, which was opened in the direction of the fibers to connect to the super ficial inguinal ring. The ilioinguinal nerve, iliohypogastric nerves were protected behind the exter nal oblique aponeurosis. Tonie was placed around the spermatic cord. We noticed that patient has a direct hernia and an indirect hernia. When we put it all together, we can imbricate everything ins jcarlos as there is easier and better benefit from him, so what we did just we rebuilt the floor of the c anal using a #1 Prolene suturing first the pubic tubercle, shelving edge of inguinal ligament, transv ersalis fascia, but without strangulating the spermatic cord. Then, after that, I placed a mesh plug in the deep inguinal ring and secured that in place with a VersaTack. Thus, after mobilizing small indirect hernia that was imbricated with a direct hernia. After that, we placed a mesh sheet in the floor of the canal securing that to the pubic tubercle, shelving edge of the inguinal ligament, trans versalis fascia, and the tail looped around the spermatic cord without strangulation. The area was i rrigated at that moment, I proceeded to bring the inguinal nerve, iliohypogastric nerve back into the inguinal canal. I checked once again the asymmetric cord structures to be intact. Reconstructed th e superficial inguinal ring with 2-0 Prolene making sure the nerves already in the inguinal canal and are not included in this suture. Irrigation was done. The Katy fascia was closed with 3-0 chromi c and skin with asad. Sponge count and instrument count was correct. At the end of the case, prince ticles were within the scrotum. We already have sterile dressings over that area. The patient marie ated the procedure well. The patient was sent to recovery in stable condition. SOM/NATALIA Voice ID: [id number] Report ID: [id number]
--- NOTE | 2024-02-07 10:08 | DS ---
Date of Discharge: 02/06/2024 Diagnosis: Large tender inguinal hernia. Procedure: Open repair of large tender inguinal hernia with mesh. Condition: Stable. Disposition: Home. Activity: As tolerated. No heavy lifting. Discharge Instructions: Follow up in my office in 1 week. Call for appointment [phone]. Keep area dry for 48 hours then may shower. Cold compress to the inguinal region. SOM/NATALIA Voice ID: [id number] Report ID: [id number]
== END 2024-02-06 13:18 | disposition home or self-care (01) ==
LOC: OR 08:12
PROVIDERS: ATTEND Surgery
PROC: 0YU60JZ Supplement Left Inguinal Region with Synthetic Substitute, Open Approach (ICD-10-PCS; principal; 2024-02-06 10:15)
DX: K40.90 Unilateral inguinal hernia, without obstruction or gangrene, not specified as recurrent (principal)
CPT/HCPCS: 93005; 85025; 80048; 36415; 71046; 49505; J2704; J2001; J2250; J3010 ×3; J1100; J7120 ×2; J0690